=== PATIENT | female | born 1960 | race Caucasian/White ===

== ENCOUNTER 2022-01-06 18:48 | Inpatient (IN) | payer OTHER ==
[2022-01-07] MEDS ORDERED: MAGNESIUM HYDROX 2400MG/30ML ORAL SUSPENSION 30 ML CUP PO PRN (01:00)
[2022-01-07] MEDS ORDERED: BISMUTH SUBSALICYLATE 524 MG/30 ML PO PRN (01:00)
[2022-01-07] MEDS ORDERED: ACETAMINOPHEN 325 MG TABLET (FP) PO PRN ×2 (01:00)
[2022-01-07] MEDS ORDERED: DICYCLOMINE HCL 10 MG CAPSULE PO PRN (01:00)
[2022-01-07] MEDS ORDERED: chlordiazePOXIDE HCL 25 MG CAPSULE PO PRN (01:00)
[2022-01-07] MEDS ORDERED: LOPERAMIDE HCL 2 MG CAPSULE PO PRN (01:00)
[2022-01-07] MEDS ORDERED: MAGNESIUM CITRATE 300 ML BOTTLE PO PRN (01:00)
[2022-01-07] MEDS ORDERED: IBUPROFEN 600 MG TABLET (FP) PO PRN (01:00)
[2022-01-07] MEDS ORDERED: MAG HYDROX/AL HYDROX/SIMETH 30 ML UNIT-DOSE CUP PO PRN (01:00)
[2022-01-07] MEDS ORDERED: ONDANSETRON *ODT* 4 MG TABLET SL PRN (01:00)
[2022-01-07] MEDS ORDERED: BENZOCAINE/MENTHOL (CHLORASEPTIC ) LOZENGE MM PRN (01:00)
[2022-01-07 01:20] VITALS: BMI 28.3
[2022-01-07] MEDS: IBUPROFEN 400 MG TABLET (FP) PO PRN ×2 (02:13→18:21)
[2022-01-07] MEDS: chlordiazePOXIDE HCL 25 MG CAPSULE PO SCH ×4 (05:41→22:27)
[2022-01-07] MEDS: NICOTINE 10 MG CARTRIDGE (INHALER) IH PRN ×2 (07:02→18:23)
[2022-01-07] MEDS: METHOCARBAMOL 500 MG TABLET PO PRN ×2 (10:10→22:29)
[2022-01-07] MEDS: PRENATAL VITAMINS W/ FOLIC ACID TABLET (FP) PO SCH (10:10)
[2022-01-07] MEDS: NICOTINE 21 MG/24 HOURS TOPICAL PATCH TD SCH (10:13)
[2022-01-07] MEDS ORDERED: MELATONIN 5 MG TABLETS PO SCH (22:00)
[2022-01-07] MEDS ORDERED: THIAMINE HCL 100 MG TABLET (FP) PO SCH (22:00)
[2022-01-08] MEDS: chlordiazePOXIDE HCL 25 MG CAPSULE PO SCH ×2 (05:30→10:15)
[2022-01-08] MEDS: METHOCARBAMOL 500 MG TABLET PO PRN (05:30)
[2022-01-08 09:43] VITALS: PULSE 78
[2022-01-08] MEDS: PRENATAL VITAMINS W/ FOLIC ACID TABLET (FP) PO SCH (10:14)
[2022-01-08] MEDS: NICOTINE 21 MG/24 HOURS TOPICAL PATCH TD SCH (10:17)
[2022-01-08 13:19] VITALS: BP 104/64; TEMP 97.3
[2022-01-09] MEDS ORDERED: chlordiazePOXIDE HCL 10 MG CAPSULE PO PRN
[2022-01-09] MEDS ORDERED: chlordiazePOXIDE HCL 10 MG CAPSULE PO SCH (05:00)
[2022-01-09 20:09] LABS: HIV INTERPRETATION NEGATIVE (NEGATIVE)
[2022-01-10] MEDS ORDERED: chlordiazePOXIDE HCL 10 MG CAPSULE PO SCH (05:00)
[2022-01-11] MEDS ORDERED: chlordiazePOXIDE HCL 10 MG CAPSULE PO ONE (05:00)
== END 2022-01-08 13:10 | disposition left against medical advice (07) | DRG 770 ==
LOC: YASAS 18:48 → Y6N 01-07 01:47
PROVIDERS: ADMIT Allergy & Immunology; ATTEND Allergy & Immunology
PROC: HZ2ZZZZ Detoxification Services for Substance Abuse Treatment (ICD-10-PCS; principal; 2022-01-07)
DX: F10.230 Alcohol dependence with withdrawal, uncomplicated (principal); F14.20 Cocaine dependence, uncomplicated; F17.210 Nicotine dependence, cigarettes, uncomplicated; I10 Essential (primary) hypertension; Z88.0 Allergy status to penicillin
CPT/HCPCS: 36415; 86780; 87389; 87811; C9803-CS; U0003; U0005